=== PATIENT | female | born 1960 | race Caucasian/White ===

== ENCOUNTER 2018-07-15 14:31 | Emergency (ER) | payer MEDICARE, OTHER ==
[~2018-07-15] VITALS: Ht 177.8 cm; Wt 92.1 kg
[~2018-07-15 14:31] MED LIST: ACETAMINOPHEN325 M1; ADDERALL 15 MG15 MG PO; ADDERALL XR 1010 MG PO; ADULT LOW DOSE81 MG PO; APIDRA SUBQ; ASPIRIN81 M2 PO; BACTRIM DS TAB1 EACH; BACTRIM DS TAB1 EACH PO; BUSPAR30 MG PO; CLONAZEPAM 1 MG1 M1 PO; COLACE100 MG PO; COZAAR 50 MG TA50 M1 PO; FLEXERIL PO; GLUCOPHAGE1000 MG PO; HUMALOG100 UNIT/1 SUBQ; HYDROCODONE-AP1 EAC6 PO; HYDROGEN PEROX480 M1; LAMICTAL150 MG PO; LANTUS SUBQ; LEVOTHYROXINE0.05 MG PO; LOVASTAT10 PO; NEURONTIN600 MG PO; NEXIUM 40 MG CA40 M1 PO; NORCO 5-325 TA1 EAC1 PO; NORCO 5-325 TA1 EACH PO; OLANZAPINE5 MG PO; PRISTIQ100 MG PO; PRISTIQ50 MG PO; REMERON15 MG PO; RISPERDAL4 M1 PO; SAVELLA100 MG PO; WHEELCHAIR1 EACH MC; ZOLOFT50 MG PO; [UNRECOGNIZED DRUG - REMARK]
[2018-07-15] MEDS ORDERED: BRINTELLIX10 MG PO (14:44)
[2018-07-15] MEDS ORDERED: XANAX1 MG PO (14:45)
[2018-07-15 15:37] VITALS: BP 105/56
== END 2018-07-15 15:38 | disposition home or self-care (01) ==
LOC: M.ERS 14:31
DX: S93.492A Sprain of other ligament of left ankle, initial encounter (principal); E11.9 Type 2 diabetes mellitus without complications; E78.00 Pure hypercholesterolemia, unspecified; M06.9 Rheumatoid arthritis, unspecified; M79.7 Fibromyalgia; Z90.710 Acquired absence of both cervix and uterus; Z90.722 Acquired absence of ovaries, bilateral; Z79.4 Long term (current) use of insulin; W10.8XXA Fall (on) (from) other stairs and steps, initial encounter; Y93.89 Activity, other specified; Y92.098 Other place in other non-institutional residence as the place of occurrence of the external cause; Y99.8 Other external cause status

== ENCOUNTER → 2018-11-16 | Outpatient (CLI) | payer MEDICARE, OTHER ==
[~2018-11-16] MED LIST changes: +BRINTELLIX10 MG PO; +XANAX1 MG PO
== END ==
LOC: M.ULTRA 12:39
DX: I70.209 Unspecified atherosclerosis of native arteries of extremities, unspecified extremity (principal); I25.10 Atherosclerotic heart disease of native coronary artery without angina pectoris; Z78.0 Asymptomatic menopausal state

== ENCOUNTER 2020-04-24 20:27 | Emergency (ER) | payer MEDICARE, OTHER ==
[~2020-04-24] VITALS: Ht 177.8 cm; Wt 81.7 kg
[2020-04-24] MEDS ORDERED: KEFLEX500 M1 PO (21:24)
[2020-04-24] MEDS ORDERED: NORCO 5-325 TA1 EAC1 PO (21:24)
[2020-04-24 21:49] VITALS: BP 142/76
== END 2020-04-24 21:51 | disposition home or self-care (01) ==
LOC: M.ERS 20:27
DX: S93.491A Sprain of other ligament of right ankle, initial encounter (principal); S90.811A Abrasion, right foot, initial encounter; E11.9 Type 2 diabetes mellitus without complications; E78.00 Pure hypercholesterolemia, unspecified; M79.7 Fibromyalgia; M06.9 Rheumatoid arthritis, unspecified; F32.9 Major depressive disorder, single episode, unspecified; F41.9 Anxiety disorder, unspecified; Z90.710 Acquired absence of both cervix and uterus; Z98.51 Tubal ligation status; Z90.49 Acquired absence of other specified parts of digestive tract; Z90.722 Acquired absence of ovaries, bilateral; Z87.891 Personal history of nicotine dependence; X50.0XXA Overexertion from strenuous movement or load, initial encounter; Y93.89 Activity, other specified; Y92.89 Other specified places as the place of occurrence of the external cause; Y99.8 Other external cause status

== ENCOUNTER → 2020-06-12 | Outpatient (CLI) | payer MEDICARE, OTHER ==
[~2020-06-12] MED LIST changes: +KEFLEX500 M1 PO
== END ==
LOC: M.ULTRA 07:41
PROVIDERS: ATTEND Nurse Practitioner Family
DX: M75.21 Bicipital tendinitis, right shoulder (principal)